=== PATIENT | female | born 1970 | race Caucasian/White ===

== ENCOUNTER 2020-10-11 21:24 | Emergency (ER) | payer MEDICAID ==
[~2020-10-11] VITALS: Ht 157.5 cm; Wt 87.0 kg
[2020-10-11] MEDS ORDERED: IBUPROFEN 600MG TABLET PO ONE (23:15)
[2020-10-12] MEDS ORDERED: IBUP-2028 MT (00:30)
[2020-10-12 01:34] VITALS: BP 129/82
== END 2020-10-12 01:34 | disposition home or self-care (01) ==
LOC: ER 21:33
DX: S10.83XA Contusion of other specified part of neck, initial encounter (principal); R51.9 Headache, unspecified; G89.11 Acute pain due to trauma; Y07.59 Other non-family member, perpetrator of maltreatment and neglect; Y00.XXXA Assault by blunt object, initial encounter; Y04.2XXA Assault by strike against or bumped into by another person, initial encounter; Y93.K1 Activity, walking an animal; Y92.488 Other paved roadways as the place of occurrence of the external cause
CPT/HCPCS: 72040; 81025; 99283